=== PATIENT | male | born 1990 | race Caucasian/White ===

== ENCOUNTER 2019-02-03 13:36 | Emergency (ER) | payer OTHER ==
[~2019-02-03] VITALS: Wt 79.0 kg
[~2019-02-03 13:36] MED LIST: CEPH-443 PO; CLIN300C10 PO; HYDR-4011 PO; IBUP-1542 PO; SULF1TAB31 PO
[2019-02-03 13:39] VITALS: BP 137/81; PULSE 81; RESP 18
--- NOTE | 2019-02-03 14:24 | ERD ---
ER Documentation Chief Complaint Chief Complaint "GENITAL PROBLEM" HPI Patient 28-year-old male presenting with white-yellowish discharge from his penis x4 days. Patient states the symptoms started 4 days ago and have not resided. Patient denies any body aches fever chills nausea vomiting. Patient states he has dysuria. Patient admits to risky sexual behaviors. Patient states he is homeless and has only one partner and he does not use protection. ROS All systems reviewed and are negative except as per history of present illness. Medications Home Meds Active Scripts Ibuprofen* (Motrin*) 600 Mg Tab, 600 MG PO Q6, #30 TAB Prov:KRISTA QUIROZ PA-C 07/09/18 Clindamycin Hcl* (Clindamycin Hcl*) 300 Mg Capsule, 300 MG PO TID for 10 Days, C AP Prov:KRISTA QUIROZ PA-C 07/09/18 Ibuprofen* (Motrin*) 600 Mg Tab, 600 MG PO Q6, #15 TAB Prov:DORA INTERIANO MD 10/16/17 Hydrocodone/Acetaminophen (Crane 5-325 Tablet) 1 Each Tablet, 1 TAB PO Q6H PRN f or PAIN, #12 TAB Prov:DORA INTERIANO MD 10/16/17 Cephalexin* (Keflex*) 500 Mg Capsule, 500 MG PO QID for 7 Days, CAP Prov:DORA INTERIANO MD 10/16/17 Sulfamethoxazole/Trimethoprim* (Bactrim Ds* Tablet) 1 Each Tablet, 1 TAB PO BID for 7 Days, #14 TAB Prov:DORA INTERIANO MD 10/16/17 Allergies Allergies: Coded Allergies: acetaminophen (Verified Allergy, Unknown, 02/03/19) PMhx/Soc Medical and Surgical Hx: pt denies Medical Hx (Epilepsy) Hx Alcohol Use: No Hx Substance Use: No Hx Tobacco Use: No FmHx Family History: No diabetes, No coronary disease, No other Physical Exam Vitals Vital Signs Date Temp Pulse Resp B/P (MAP) Pulse Ox O2 O2 Flow FiO2 Time Delivery Rate 02/03/19 98.0 81 18 137/81 99 13:39 (99) Physical Exam GENERAL: The patient is well-appearing, well-nourished, in no acute distress HEENT: Atraumatic. Conjunctivae are pink. Pupils equal, round, and reactive to light. There is no scleral icterus. Tympanic membranes clear bilaterally. Oropharynx clear. No nystagmus or photophobia. NECK: C-spine is soft and supple. There is no meningismus. There is no cervical lymphadenopathy. : Patient has no lesions on his penis but there is white-yellowish discharge. Patient wrapped his penis in a napkin which the napkin was soaked with discharge, patient's underwear had discharge present and it. There was no observation of open lesions. Results 24 hrs Current Medications Medications Dose Sig/Deacon Start Time Status Last (Trade) Ordered Route PRN Stop Time Admin Dose Reason Admin Ceftriaxone 250 mg ONCE ONCE 02/03/19 DC 02/03/19 Sodium IM 14:30 02/03/19 14:19 (Rocephin) 14:31 Lidocaine 20 ml ONCE ONCE 02/03/19 DC 02/03/19 (Xylocaine SC 14:30 02/03/19 14:20 1% (Mdv) 20 14:31 ml) 1,000 mg ONCE ONCE 02/03/19 DC 02/03/19 Azithromycin PO 14:30 02/03/19 14:19 (Zithromax) 14:31 Procedures/MDM ED course: Physical exam Ceftriaxone Azithromycin Patient education and follow-up instructions discussed with patient The patient was stable throughout the ED course. The patient and/or family informed of laboratory and diagnostic imaging results throughout the ED course. Medications given in ER: Ceftriaxone Azithromycin Patient tolerated medication well with no adverse reactions. Patient reported improvement in pain. Medical decision making: Patient is a 28-year-old male presenting with discharge from his penis. Patient states he has had a history of STIs and this is very similar episode to the last time he was diagnosed with gonorrhea. Patient states he was diagnosed with a 2 years ago and finished his full course of antibiotics. Patient states the symptoms started about 4 days ago. Patient admits to risky sexual behavior. Patient states he has only one partner which is his girlfriend but they are both homeless. Patient states his partner is not having any symptoms. Physical exam was remarkable for white-yellowish discharge. No lesions were noted. patient will be treated empirically for gonorrhea chlamydia. Patient was given ceftriaxone and azithromycin in the ED. Patient tolerated medication well with no side effects.Low suspicion for pyelonephritis, nephrolithiasis, appendicitis, epididymitis, urethritis, orchitis, balanitis, prostatitis, phimosis, priapism, penile contusion, incarcerated hernia or strangulated hernia. Patient was advised that he needs to follow-up with his primary care provider or the community clinic in 1 to 2 days regarding this visit. Patient was advised to return if symptoms worsen or do not reside. Patient was advised to follow-up with the primary care provider. Patient was also given resources for the community clinic. Patient had no further questions upon discharge and is in agreement to the treatment plan Discharge: At this time, patient is stable for discharge and outpatient management. I have instructed the patient to follow-up with his\\her primary care physician in 1 to 2 days. I have discussed with the patient the possibility of needing to see a specialist for further work-up and imaging studies if symptoms persist. I have instructed the patient to promptly return to the ER for any new or worsening symptoms including increased pain, fever, nausea, vomiting, weakness or LOC. The patient and\\or family expressed understanding of and agreement with this plan. All questions were answered. Home care instructions were provided. Disclaimer: Inadvertent spelling and grammatical errors are likely due to EHR\\dictation software use and do not reflect on the overall quality of patient care. Also, please note that the electronic time recorded on the note does not necessarily reflect the actual time of the patient encounter. Departure Diagnosis: Primary Impression: Risky sexual behavior High risk sexual behavior type: heterosexual Qualified Codes: Z72.51 - High risk heterosexual behavior Condition: Stable Referrals: [facility] YOU HAVE RECEIVED A MEDICAL SCREENING EXAM AND THE RESULTS INDICATE THAT YOU DO NOT HAVE A CONDITION THAT REQUIRES URGENT TREATMENT IN THE EMERGENCY DEPARTMENT. FURTHER EVALUATION AND TREATMENT OF YOUR CONDITION CAN WAIT UNTIL YOU ARE SEEN IN YOUR DOCTORS OFFICE WITHIN THE NEXT 1-2 DAYS. IT IS YOUR RESPONSIBILITY TO MAKE AN APPOINTMENT FOR FOLOW-UP CARE. IF YOU HAVE A PRIMARY DOCTOR --you should call your primary doctor and schedule an appointment IF YOU DO NOT HAVE A PRIMARY DOCTOR YOU CAN CALL OUR PHYSICIAN REFERRAL HOTLINE AT IF YOU CAN NOT AFFORD TO SEE A PHYSICIAN YOU CAN CHOSE FROM THE FOLLOWING [facility] [address] [facility]. [facility] [address] [facility] [address] [facility] [address] [facility]. [facility] [address] [facility]. [facility]. [address] Additional Instructions: Follow-up with primary care provider or community clinic within 1 to 2 days reg arding this visit. If symptoms persist or worsen return. Take medications as prescribed. TISHA HERNANDEZ PA-C Feb 03, 2019 14:24
[2019-02-03] MEDS ORDERED: CEFTRIAXONE 250 MG INJ IM ONE (14:30)
[2019-02-03] MEDS ORDERED: AZITHROMYCIN 500 MG TAB PO ONE (14:30)
[2019-02-03] MEDS ORDERED: LIDOCAINE 1% (MDV) 20 ML INJ SC ONE (14:30)
== END 2019-02-03 14:44 | disposition home or self-care (01) ==
LOC: FTE 13:36
DX: Z72.51 High risk heterosexual behavior (principal)
CPT/HCPCS: 96372; J0696; Z7502; Z7610

== ENCOUNTER 2019-05-03 22:15 | Emergency (ER) | payer SELFPAY ==
[~2019-05-03] VITALS: Ht 177.8 cm; Wt 63.6 kg
[2019-05-03 22:40] VITALS: BP 114/79; PULSE 55; RESP 16; Ht 177.8 cm; Wt 63.6 kg
[2019-05-04] MEDS ORDERED: IBUPROFEN 600 MG TAB PO ONE (00:30)
== END 2019-05-04 03:02 | disposition home or self-care (01) ==
LOC: FTE 22:15
DX: M79.671 Pain in right foot (principal)
CPT/HCPCS: 73630